=== PATIENT | female | born 1985 | race American Indian/Alaskan Native ===

== ENCOUNTER 2016-09-27 09:07 | Emergency (ER) | payer MEDICAID ==
[2016-09-27 10:23] LABS: Basophils % (Auto) 0.2 % (0.0-1.8); Eosinophils % (Auto) 0.2 % (0.0-4.3); Hematocrit 38.6 % (30.3-42.9); Hemoglobin 12.7 gm/dl (10.1-14.3); Mean Corpuscular HGB Conc 33 % (30-34); Mean Corpuscular Hemoglobin 32 pg (28-32); Mean Corpuscular Volume 98 fl (79-97); Platelet Count 299 K/mm3 (140-440); Red Blood Count 3.95 M/mm3 (3.65-5.03); White Blood Count 8.6 K/mm3 (4.5-11.0)
[2016-09-27 10:24] LABS: Bilirubin,Urine NEG (Negative); Blood,Urine NEG (Negative); Ketones,Urine 20 mg/dL (Negative); Leukocyte Esterase,Urine NEG (Negative); Nitrite,Urine NEG (Negative); Protein,Urine <15 mg/dL mg/dL (Negative); Urobilinogen,Urine < 2.0 mg/dL (<2.0)
[2016-09-27 10:33] LABS: Alanine Aminotransferase 25 units/L (7-56); Albumin 4.6 g/dL (3.9-5); Albumin/Globulin Ratio 1.4 %; Alkaline Phosphatase 73 units/L (35-129); Anion Gap 21 mmol/L; Bilirubin,Total 0.6 mg/dL (0.1-1.2); Blood Urea Nitrogen 6 mg/dL (7-17); Calcium 9.7 mg/dL (8.4-10.2); Carbon Dioxide 22 mmol/L (22-30); Chloride 102.8 mmol/L (98-107); Glucose 113 mg/dL (65-100); Lipase 15 units/L (13-60); Potassium 4.3 mmol/L (3.6-5.0); Sodium 141 mmol/L (137-145)
--- NOTE | 2016-09-27 12:22 | Ultrasound Report ---
OB ultrasound: Endovaginal and transabdominal imaging is performed. The examination could not be completed due to the patient's lack of cooperation. The uterus is anteverted measuring approximately 5.4 x 6.4 x 9.3 cm. There is a small sac within the endometrium. Measurements were not obtained. No gestation identified. The left ovary measures 3.2 cm and the right measures 3.7 cm in greatest dimension. No free fluid identified. Impression: Small gestational sac but no fetus identified at this time. Patient became uncooperative toward end of the exam.
[2016-09-27] MEDS ORDERED: NACL 0.9% 1000 ML 1,000 ML IV ONE (14:21)
--- NOTE | 2016-09-27 14:23 | Emergency Department Report ---
HPI - General Chief Complaint: Abdominal Pain Time Seen by Provider: 09/27/16 13:51 - HPI HPI: 31-year-old female presents to the emergency department with a complaint of some abdominal cramping, back pain, nausea, vomiting and diarrhea while . The patient believes she is about 6 weeks as she had a positive home test and another positive test at the [facility] office recently. She says her last menstrual cycle was August 16. She denies any spotting or bleeding, fever, chest pain or shortness of breath. She is with 2 previous miscarriages. She says she is due to see a perinatologist and will need a cerclage. She has not taken anything for symptoms prior to presentation. ED Past Medical Hx - Past Medical History Hx Headaches / Migraines: Yes Additional medical history: Miscarriages X 2, Anxiety - Surgical History Past Surgical History?: No - Social History Smoking Status: Never Smoker Substance Use Type: None - Medications Home Medications: Home Medications Medication Instructions Recorded Confirmed Last Taken Type Sertraline [Zoloft] 25 mg PO QDAY 09/27/16 09/27/16 09/26/16 History ED Review of Systems ROS: Stated complaint: 6 WKS / CRAMPING/DIARRHEA/VOMITTING/CHILLS Other details as noted in HPI Comment: All other systems reviewed and negative Constitutional: denies: chills, fever Eyes: denies: eye pain, eye discharge, vision change ENT: denies: ear pain, throat pain Respiratory: denies: cough, shortness of breath, wheezing Cardiovascular: denies: chest pain, palpitations Gastrointestinal: abdominal pain (cramping), nausea, vomiting, diarrhea Genitourinary: denies: urgency, dysuria, discharge Musculoskeletal: denies: back pain, joint swelling, arthralgia Skin: denies: rash, lesions Neurological: denies: headache, weakness, paresthesias Physical Exam - Physical Exam Vital Signs: Vital Signs 09/27/16 09:13 Temperature 98.0 F Pulse Rate 69 Respiratory 20 Rate Blood Pressure 120/56 O2 Sat by Pulse 100 Oximetry Physical Exam: GENERAL: The patient is well-developed well-nourished. HEENT: Normocephalic. Atraumatic. Extraocular motions are intact. Patient has moist mucous membranes. NECK: Supple. Trachea is midline. CHEST/LUNGS: Clear to auscultation. There is no respiratory distress noted. HEART/CARDIOVASCULAR: Regular. There is no tachycardia. There is no gallop rub or murmur. ABDOMEN: Abdomen is soft, nontender. No guarding or rebound tenderness. Patient has normal bowel sounds. There is no abdominal distention. SKIN: Trachea is midline. NEURO: The patient is awake, alert, and oriented. The patient is cooperative. The patient has no focal neurologic deficits. The patient has normal speech. MUSCULOSKELETAL: There is no tenderness or deformity. There is no limitation range of motion. There is no evidence of acute injury. ED Course Vital Signs 09/27/16 09:13 Temperature 98.0 F Pulse Rate 69 Respiratory 20 Rate Blood Pressure 120/56 O2 Sat by Pulse 100 Oximetry ED Medical Decision Making - Lab Data Result diagrams: 09/27/16 09:43 09/27/16 09:43 - Radiology Data Radiology results: report reviewed Transvaginal/ ultrasound shows a small gestational sac but no yolk sac or pole at this time. - Medical Decision Making 31-year-old female presents to the emergency department with the complaint of abdominal cramping while . No vaginal bleeding. Patient has history of 2 previous miscarriages and is high risk. Patient's beta hCG was 9700. However /transvaginal ultrasound shows a small gestational sac without any yolk y or sac or pole. This may be an early intrauterine versus miscarriage. Patient will need a repeat ultrasound and hormone level in 3-5 days. If the hormone level is on the declined then this is most likely a miscarriage. If the hormone levels rising and a repeat ultrasound shows formation of yolk sac or pole within the patient still may have a viable . Patient will restart on vitamins. Tylenol for discomfort. She will return to the ER for any worsening or symptoms, vaginal bleeding or any acute distress. - Differential Diagnosis , miscarriage, threatened , fibroids Critical Care Time: No Critical care attestation.: If time is entered above; I have spent that time in minutes in the direct care of this critically ill patient, excluding procedure time. ED Disposition Clinical Impression: Dehydration Qualifiers: Weeks of gestation: less than 8 weeks Qualified Code(s): Z3A.01 - Less than 8 weeks gestation of Abdominal pain Qualifiers: Abdominal location: generalized Qualified Code(s): R10.84 - Generalized abdominal pain Nausea & vomiting Qualifiers: Vomiting type: unspecified Vomiting Intractability: non-intractable Qualified Code(s): R11.2 - Nausea with vomiting, unspecified Disposition: DISCHARGED TO HOME OR SELFCARE Is pt being admited?: No Condition: Stable Instructions: (ED), Dehydration (ED), Acute Nausea and Vomiting (ED) , Abdominal Pain (ED) Additional Instructions: These follow-up with your [facility] in the next few days. you will need a repeat hormone level and ultrasound in about 3-5 days. Your hormone level today was 9700. If you get the repeat hormone level in a few days and it is increasing, that is a good sign for a possible viable . If the repeat hormone level is decreasing, it might be a sign of miscarriage. The next ultrasound will also give you more information as to the viability of the . Return to the emergency department with any worsening of your symptoms, vaginal bleeding, intractable vomiting or any acute distress. Referrals: PRIMARY CARE, [Primary Care Provider] - 3-5 Days YOLETTE BUNN MD [Staff Physician] - 3-5 Days YASMANY MOE MD [Staff Physician] - 3-5 Days Time of Disposition: 16:22
[2016-09-27] MEDS ORDERED: TYLENOL PO ONE ×2 (15:32→15:33)
[2016-09-27 16:50] VITALS: BP 130/55
== END 2016-09-27 16:45 | disposition home or self-care (01) ==
LOC: ED 09:07
DX: O21.9 Vomiting of pregnancy, unspecified (principal); O26.891 Other specified pregnancy related conditions, first trimester; E86.0 Dehydration; R11.0 Nausea; R10.84 Generalized abdominal pain; Z3A.08 8 weeks gestation of pregnancy; F41.9 Anxiety disorder, unspecified
CPT/HCPCS: 36415; 76801; 76817; 80053; 81001; 83690; 84702; 84703; 85025; 96360; 99284; J7030

== ENCOUNTER 2018-01-07 10:23 | Emergency (ER) | payer SELFPAY ==
[2018-01-07] MEDS ORDERED: ZOFRAN IV ONE (12:31)
[2018-01-07] MEDS ORDERED: NACL 0.9% 1000 ML 1,000 ML IV ONE (12:31)
[2018-01-07] MEDS ORDERED: ANTIVERT PO ONE (12:31)
[2018-01-07] MEDS ORDERED: VALIUM PO ONE (12:32)
--- NOTE | 2018-01-07 12:33 | Emergency Department Report ---
Blank Doc - Documentation Documentation: Patient presents to the emergency department with complaint of vertigo. Patient states she's had a history of vertigo for quite some time now and every once in a while she has an exacerbation of it. Patient states that she no longer has any medications for her vertigo. Complains of the room spinning with standing or quick change in position of her head. Patient has no other complaints. Physical exam able to recovery symptoms or rapid eye movement. Care be taken over by the mid-level provider with consultation by me as needed.
--- NOTE | 2018-01-07 13:07 | Emergency Department Report ---
ED Dizziness HPI - General Chief Complaint: Dizziness Stated Complaint: VETERBRATE/DEHY Time Seen by Provider: 01/07/18 12:21 Source: patient Mode of arrival: Wheelchair Limitations: No Limitations - History of Present Illness Initial Comments: This is a 32-year-old -[place] female who presents with vertigo 3 days. Patient states she has a history of vertigo and migraine headache when [facility] Patient states symptoms originally started when she was second time. Patient states symptoms resolved shortly after given . She is currently out of her prescribed medication. Patient states Sunday and she felt as the room was spinning with nausea without vomiting. Patient states yesterday she started vomiting for 3 times and once this morning. Patient states this presentation is different than usual because usually she has headaches with vertigo. Patient denies headache, abdominal pain, dysuria, frequency, and urgency. MD Complaint: dizziness Onset/Timin -: days(s) Timing: gradual onset Description: "room spinning", lightheadedness, near-syncope History of Same: Yes History of Trauma: No Severity: moderate Improves With: nothing Worsens With: movement, position Associated Symptoms: denies other symptoms - Related Data Home Medications Medication Instructions Recorded Confirmed Last Taken Sertraline [Zoloft] 25 mg PO QDAY 09/27/16 09/27/16 09/26/16 Previous Rx's Medication Instructions Recorded Last Taken Type Meclizine [Antivert] 25 mg PO TID PRN #15 tablet 01/07/18 Unknown Rx Ondansetron [Zofran Odt] 4 mg PO TID PRN #6 tab.rapdis 01/07/18 Unknown Rx Allergies Allergy/AdvReac Type Severity Reaction Status Date / Time No Known Allergies Allergy Unverified 09/27/16 09:13 ED Review of Systems ROS: Stated complaint: VETERBRATE/DEHY Other details as noted in HPI Constitutional: denies: chills, fever Respiratory: denies: cough, shortness of breath, wheezing Cardiovascular: denies: chest pain, palpitations Gastrointestinal: nausea, vomiting. denies: abdominal pain, diarrhea Neurological: vertigo. denies: headache, weakness, paresthesias Psychiatric: denies: anxiety, depression ED Past Medical Hx - Past Medical History Previous Medical History?: Yes Hx Headaches / Migraines: Yes Additional medical history: Miscarriages X 2, Anxiety. vertigo - Surgical History Past Surgical History?: No - Social History Smoking Status: Current Every Day Smoker Substance Use Type: None - Medications Home Medications: Home Medications Medication Instructions Recorded Confirmed Last Taken Type Sertraline [Zoloft] 25 mg PO QDAY 09/27/16 09/27/16 09/26/16 History Meclizine [Antivert] 25 mg PO TID PRN #15 tablet 01/07/18 Unknown Rx Ondansetron [Zofran Odt] 4 mg PO TID PRN #6 tab.rapdis 01/07/18 Unknown Rx ED Physical Exam - General Limitations: No Limitations General appearance: alert, in no apparent distress - Respiratory Respiratory exam: Present: normal lung sounds bilaterally. Absent: respiratory distress - Cardiovascular Cardiovascular Exam: Present: regular rate, normal rhythm. Absent: systolic murmur, diastolic murmur, rubs, gallop - GI/Abdominal GI/Abdominal exam: Present: soft, normal bowel sounds. Absent: organomegaly, mass - Neurological Exam Neurological exam: Present: alert, oriented X3, normal gait - Psychiatric Psychiatric exam: Present: normal affect, normal mood - Skin Skin exam: Present: warm, dry, intact, normal color. Absent: rash ED Course Vital Signs 01/07/18 10:57 Temperature 98.1 F Pulse Rate 53 L Respiratory 18 Rate Blood Pressure 117/68 O2 Sat by Pulse 100 Oximetry ED Medical Decision Making - Medical Decision Making This is a 32 y.o. female that presents with vertigo and nausea and vomiting for 3 days. History of vertigo. Patient is stable and was examined by me and Dr. Valladares. IV obtained and patient given NS 1L. Patient received antivert 50 mg po , zofran 4 mg IV, and valium 5mg po while in ER. Urine hCG obtained and negative. On reevaluation patient reports feeling much better. Start meclizine 25 mg 3 times a day when necessary and Zofran ODT 4 mg by mouth 3 times a day when necessary. Follow-up with primary care provider and neurologist on discharge. No further questions noted by the patient. Discharged home in stable condition. Critical care attestation.: If time is entered above; I have spent that time in minutes in the direct care of this critically ill patient, excluding procedure time. ED Disposition Clinical Impression: Vertigo, Nausea and vomiting in adult Disposition: DC-01 TO HOME OR SELFCARE Is pt being admited?: No Does the pt Need Aspirin: No Condition: Stable Instructions: Vertigo (ED), Near Syncope (ED) Additional Instructions: Take meclizine and for Zofran at start of symptoms. Increase fluid intake to avoid dehydration. Follow-up with neurologist within the next week. Follow-up with primary care provider in 2-3 days. Prescriptions: Meclizine [Antivert] 25 mg PO TID PRN #15 tablet PRN Reason: Vertigo Ondansetron [Zofran Odt] 4 mg PO TID PRN #6 tab.rapdis PRN Reason: Nausea And Vomiting Referrals: [facility] [Provider Group] - 3-5 Days [facility] [Provider Group] - 3-5 Days [facility] [Provider Group] - 3-5 Days Forms: Work/School Release Form(ED) Time of Disposition: 15:08 Print Language: CHINESE
[2018-01-07] MEDS ORDERED: NACL 0.9% 1000 ML 1,000 ML ONE (13:18)
[2018-01-07 14:58] LABS: HCG Qualitative,Urine Negative (Negative)
[2018-01-07 15:27] VITALS: BP 115/64
== END 2018-01-07 15:26 | disposition home or self-care (01) ==
LOC: ED 10:23
DX: R42 Dizziness and giddiness (principal); R11.2 Nausea with vomiting, unspecified; R51 Headache; G43.909 Migraine, unspecified, not intractable, without status migrainosus; F41.9 Anxiety disorder, unspecified; F17.200 Nicotine dependence, unspecified, uncomplicated
CPT/HCPCS: 81025; 96361; 96374; 99283; J2405; J7030

== ENCOUNTER 2021-03-24 13:35 | Emergency (ER) | payer SELFPAY ==
--- NOTE | 2021-03-24 14:35 | Emergency Department Report ---
ED General Adult HPI - General Chief complaint: Extremity Injury, Lower Stated complaint: LT LEG INJURY Time Seen by Provider: 03/24/21 13:49 Source: patient Mode of arrival: Ambulatory Limitations: No Limitations - History of Present Illness Initial comments: 35-year-old -[place] female patient presents with complaints of left lower leg pain today. Patient states she had direct trauma to the lower leg with a metal object at work. She states her tetanus vaccination is up-to-date. Pain radiates down her leg. She has not tried any OTC medication for symptoms. She denies any difficulty with ambulation or swelling to the leg. - Related Data Home Medications Medication Instructions Recorded Confirmed Last Taken Sertraline [Zoloft] 25 mg PO QDAY 09/27/16 09/27/16 09/26/16 Previous Rx's Medication Instructions Recorded Last Taken Type Meclizine [Antivert] 25 mg PO TID PRN #15 tablet 01/07/18 Unknown Rx Ondansetron [Zofran Odt] 4 mg PO TID PRN #6 tab.rapdis 01/07/18 Unknown Rx Ibuprofen [Motrin 800 MG tab] 800 mg PO Q8HR PRN #15 tablet 03/24/21 Unknown Rx Allergies Allergy/AdvReac Type Severity Reaction Status Date / Time No Known Allergies Allergy Unverified 03/24/21 13:42 ED Review of Systems ROS: Stated complaint: LT LEG INJURY Other details as noted in HPI Musculoskeletal: denies: arthralgia Skin: denies: rash, lesions Neurological: denies: numbness, paresthesias, abnormal gait ED Past Medical Hx - Past Medical History Hx Headaches / Migraines: Yes Additional medical history: Miscarriages X 2, Anxiety. vertigo - Social History Smoking Status: Current Every Day Smoker Substance Use Type: None - Medications Home Medications: Home Medications Medication Instructions Recorded Confirmed Last Taken Type Sertraline [Zoloft] 25 mg PO QDAY 09/27/16 09/27/16 09/26/16 History Meclizine [Antivert] 25 mg PO TID PRN #15 tablet 01/07/18 Unknown Rx Ondansetron [Zofran Odt] 4 mg PO TID PRN #6 tab.rapdis 01/07/18 Unknown Rx Ibuprofen [Motrin 800 MG tab] 800 mg PO Q8HR PRN #15 tablet 03/24/21 Unknown Rx ED Physical Exam - General Limitations: No Limitations General appearance: alert, in no apparent distress - Head Head exam: Present: atraumatic, normocephalic - Eye Eye exam: Present: normal appearance - Neck Neck exam: Present: normal inspection - Respiratory Respiratory exam: Absent: respiratory distress - Cardiovascular Cardiovascular Exam: Present: regular rate - Extremities Exam Extremities exam: Present: other (Tenderness to palpation noted to upper mid left tibia with scabbed over small cut; no bruising or bony abnormality noted; normal perfusion and sensation and full range of motion of the lower leg and ankle noted) - Neurological Exam Neurological exam: Present: alert, oriented X3 - Psychiatric Psychiatric exam: Present: normal affect, normal mood - Skin Skin exam: Present: warm, dry, intact, normal color. Absent: rash ED Course Vital Signs 03/24/21 13:41 Temperature 98.3 F Pulse Rate 67 Respiratory 16 Rate Blood Pressure 118/63 O2 Sat by Pulse 100 Oximetry ED Medical Decision Making - Radiology Data Radiology results: report reviewed LEFT TIBIA AND FIBULA 2 VIEWS INDICATION: mid/upper tibia pain after direct trauma. COMPARISON: None. IMPRESSION: No acute osseous or soft tissue abnormality. No significant DJD. - Medical Decision Making 35-year-old -[place] female patient presents with complaints of left lower leg pain today. Patient states she had direct trauma to the lower leg with a metal object at work. She states her tetanus vaccination is up-to-date. Pain radiates down her leg. She has not tried any OTC medication for symptoms. She denies any difficulty with ambulation or swelling to the leg. X-rays negative for any acute bony abnormality. Recommend Neosporin applied to wound 3 times a day for 5 days. Ibuprofen as needed and icing. Patient follow- up with PCP as needed. She is well-appearing, her vitals are within normal limits, she is stable for discharge home. Strict return precautions were discussed in detail with patient who verbalized understanding. Critical care attestation.: If time is entered above; I have spent that time in minutes in the direct care of this critically ill patient, excluding procedure time. ED Disposition Clinical Impression: Injury of left lower extremity Disposition: HOME / SELF CARE / HOMELESS Is pt being admited?: No Condition: Stable Instructions: RICE Therapy for Routine Care of Injuries, [id number] Additional Instructions: Please apply Neosporin to wound three times daily for 5 days Prescriptions: Ibuprofen [Motrin 800 MG tab] 800 mg PO Q8HR PRN #15 tablet PRN Reason: pain Referrals: PRIMARY CARE, [Referring] - as needed
--- NOTE | 2021-03-24 15:04 | XRay Report ---
LEFT TIBIA AND FIBULA 2 VIEWS INDICATION: mid/upper tibia pain after direct trauma. COMPARISON: None. IMPRESSION: No acute osseous or soft tissue abnormality. No significant DJD. Signer Name: Remy Figueredo Jr, MD Signed: 03/24/2021 3:00 PM Workstation Name: [id number]
[2021-03-24 15:35] VITALS: BP 122/74
== END 2021-03-24 15:39 | disposition home or self-care (01) ==
LOC: ED 13:35
DX: S89.92XA Unspecified injury of left lower leg, initial encounter (principal); G43.909 Migraine, unspecified, not intractable, without status migrainosus; F17.200 Nicotine dependence, unspecified, uncomplicated; Z79.899 Other long term (current) drug therapy; X58.XXXA Exposure to other specified factors, initial encounter; Y93.89 Activity, other specified; Y92.89 Other specified places as the place of occurrence of the external cause; Y99.8 Other external cause status
CPT/HCPCS: 99283